=== PATIENT | female | born 2005 | race Caucasian/White ===

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

== ENCOUNTER 2025-02-06 20:00 | Emergency (ER) | payer OTHER, SELFPAY ==
[2025-02-06 20:12] VITALS: BP 143/80; PULSE 90; RESP 16; TEMP 37.7; O2SAT 98; BMI 20.1
[2025-02-06 21:11] LABS: Add Manual Diff / Slide Review NO; Hematocrit 38.3 % (36-46); Hemoglobin 12.9 g/dL (12.0-16.0); Lymphocytes Absolute Auto 2600 /uL (1100-4500); Mean Corpuscular HGB Conc 33.7 % (30-36); Mean Corpuscular Hemoglobin 29.9 PG (26-34); Mean Corpuscular Volume 88.7 fL (80-100); Platelet Count 221 X10^3/uL (150-400)
[2025-02-06 21:22] LABS: Alanine Aminotransferase 16 IU/L (<35); Albumin 4.6 g/dL (3.5-5.0); Albumin Globulin Ratio 1.7 (1.0-2.8); Alkaline Phosphatase 68 U/L (38-126); Blood Urea Nitrogen 15 mg/dL (7-17); Calcium 9.3 mg/dL (8.4-10.2); Carbon Dioxide 21 mmol/L (22-32); Chloride 107 mmol/L (98-107); Estimated Glomerular Filt Rate > 60 mL/min (>60); Globulin 2.7 g/dL (1.7-4.1); Glucose 84 mg/dL (70-99); HEMOLYSIS < 15 (0-50); Lipase 72 U/L (23-300); Potassium 4.0 mmol/L (3.4-5.1); Sodium 136 mmol/L (137-145); Total Protein 7.3 g/dL (6.3-8.2)
--- NOTE | 2025-02-07 17:20 | ED_ITS ---
HPI - Abdominal Pain General Chief Complaint: Abdominal Pain Stated Complaint: endometriosis flare, abd pain Time Seen by Provider: 02/06/25 21:20 Source: patient Mode of arrival: Ambulatory Related Data Home Medications ?Medication ?Instructions ?Recorded ?Confirmed testosterone 1 % (50 mg/5 gram) 1 packet topical QAM 0 08/10/24 08/10/24 transdermal gel packet Previous Rx's ?Medication ?Instructions ?Recorded naproxen 375 mg tablet 375 mg PO BID PRN pain #60 t abs 04/15/22 Allergies Allergy/AdvReac Type Severity Reaction Status Date / Time No Known Drug Allergies Allergy Verified 02/06/25 20:14 Patient History Social History Smoking Status: Never smoker Smoking Status: Never smoker Exam Initial Vital Signs Initial Vital Signs: Vital Signs Temperature 99.8 F H 02/06/25 20:12 Pulse Rate 90 02/06/25 20:12 Respiratory Rate 16 02/06/25 20:12 Blood Pressure 143/80 H 02/06/25 20:12 Pulse Oximetry 98 02/06/25 20:12 Oxygen Delivery Method Room Air 02/06/25 20:12 Course Orders Ordered: Discontinued Medications Ondansetron HCl (Ondansetron 4 Mg/2 Ml Inj) 4 mg IV NOW PRN PRN Reason: Nausea And Vomiting Ondansetron HCl (Ondansetron 4 Mg Odt) 4 mg PO NOW PRN PRN Reason: Nausea And Vomiting MDM - Abdominal Pain Lab Data 02/06/25 21:01 02/06/25 21:01 Labs: Lab Results 02/06/25 Range/Units 21:01 WBC 8.9 (4.5-11.0) X10^3/uL RBC 4.32 (4.0-5.2) X10^6/uL Hgb 12.9 (12.0-16.0) g/dL Hct 38.3 (36-46) % MCV 88.7 (80-100) fL MCH 29.9 (26-34) PG MCHC 33.7 (30-36) % RDW 13.0 (11.6-14.8) % Plt Count 221 (150-400) X10^3/uL Neut % (Auto) 64.4 (50-75) % Lymph % (Auto) 28.7 (25-40) % Mason % (Auto) 4.6 (3-14) % Eos % (Auto) 1.4 L (2-4) % Baso % (Auto) 0.9 (0-2) % Neut # (Auto) 5700 (2248-8136) /uL Lymph # (Auto) 2600 (9692-6848) /uL Mason # (Auto) 400 (0-900) /uL Eos # (Auto) 100 (0-450) /uL Baso # (Auto) 100 (0-100) /uL Sodium 136 L (137-145) mmol/L Potassium 4.0 (3.4-5.1) mmol/L Chloride 107 (98-107) mmol/L Carbon Dioxide 21 L (22-32) mmol/L BUN 15 (7-17) mg/dL Creatinine 0.74 (0.52-1.04) mg/dL Estimated GFR > 60 (>60) mL/min BUN/Creatinine Ratio 20.3 (6-22) Glucose 84 (70-99) mg/dL Calcium 9.3 (8.4-10.2) mg/dL Total Bilirubin 0.5 (0.2-1.3) mg/dL AST 27 (14-36) IU/L ALT 16 (<35) IU/L Alkaline Phosphatase 68 (38-126) U/L Total Protein 7.3 (6.3-8.2) g/dL Albumin 4.6 (3.5-5.0) g/dL Globulin 2.7 (1.7-4.1) g/dL Albumin/Globulin Ratio 1.7 (1.0-2.8) Lipase 72 (23-300) U/L Discharge Plan Departure Patient Disposition: Left Without Being Seen Clinical Impression: Patient left without being seen Prescriptions: No Action testosterone 1 % (50 mg/5 gram) gel in packet 1 packet topical QAM naproxen 375 mg tablet 375 mg PO BID PRN (Reason: pain) Qty: 60 0RF Rx Instructions: begin day prior to menstrual cycle and continue through the first 4 days of cycle
== END 2025-02-06 23:10 | disposition left against medical advice (07) ==
PROVIDERS: Emergency Provider Family Medicine
DX: R10.9 Unspecified abdominal pain (principal); N80.8 Other endometriosis
CPT/HCPCS: 80053; 83690; 85025; 99281